=== PATIENT | female | born 1990 | race Caucasian/White ===

== ENCOUNTER 2020-05-18 09:43 | Emergency (ER) | payer MEDICAID, SELFPAY ==
--- NOTE | 2020-05-18 09:46 | ED.GENADULT ---
HPI - General Adult General Chief complaint: Urogenital-Female Stated complaint: Pos STD Time Seen by Provider: 05/18/20 09:46 Source: patient Mode of arrival: ambulatory Limitations: no limitations History of Present Illness HPI narrative: 30-year-old female patient presents to the [facility] with complaints of possible STD. Patient states she has had symptoms now for about a week and complains of white and yellow discharge, urgency frequency but denies any pain. Patient states she has had some abdominal cramping. Patient states she has had an STD before and had similar symptoms. Denies any fevers, body aches or chills. Patient states that she is but that her is incarcerated and she does have another partner but only one other partner. Patient denies or breast-feeding at this time. Related Data Allergies Allergy/AdvReac Type Severity Reaction Status Date / Time No Known Allergies Allergy Verified 05/18/20 09:58 Review of Systems Review of Systems: Narrative: CONSTITUTIONAL: Denies fever, chills, or sweats. EYES: Denies visual changes, redness, or discharge. ENT: Denies rhinorrhea, congestion, sore throat, or otalgia. CARDIOVASCULAR: Denies chest pain, palpitations, or edema. RESPIRATORY: Denies cough or dyspnea. GASTROINTESTINAL: Denies abdominal pain, nausea, vomiting, or diarrhea. GENITOURINARY: Denies dysuria or hematuria. Positive vaginal discharge x1 week. SKIN: Denies rash or itching. MUSCULOSKELETAL: Denies back pain, joint pain, or myalgia. NEUROLOGIC: Denies headache, numbness, or weakness. PSYCHIATRIC: Denies anxiety or depression. PMFSH Comments At the time of my signature I agree with nursing past medical history, surgical, social, and family history. There is no relevant family history pertinent to the presenting complaint. Exam Narrative: Exam Narrative: GENERAL: Well-appearing, well-nourished, and in no acute distress. HEAD: Normocephalic, atraumatic. EYES: PERRLA and EOMI. ENT: Nares clear, no rhinorrhea or epistaxis. Mucous membranes moist. NECK: Supple. No lymphadenopathy CHEST: Clear to auscultation. No respiratory distress. HEART: Regular rate and rhythm. No murmur heard. Normal peripheral pulses. ABDOMEN: Soft, nontender, nondistended, normal active bowel sounds. No CVA tenderness on percussion : Normal external female genitalia. OS is closed. Patient does have some milky white discharge noted on exam. No adnexal fullness or TTP. No CVA tenderness to percussion. EXTREMITIES: Normal range of motion. No edema. SKIN: Warm, dry, no rash. NEURO: No focal deficits. Alert and oriented x3. Course Vital Signs Vital signs: Vital Signs Temperature 36.6 C 05/18/20 09:56 Pulse Rate 105 H 05/18/20 09:56 Respiratory Rate 20 05/18/20 09:56 Blood Pressure 121/72 05/18/20 09:56 Pulse Oximetry 99 05/18/20 09:56 Temperature 36.6 C 05/18/20 09:56 Pulse Rate 105 H 05/18/20 09:56 Respiratory Rate 20 05/18/20 09:56 Blood Pressure 121/72 05/18/20 09:56 Pulse Oximetry 99 05/18/20 09:56 Vital signs reviewed Medical Decision Making Differential Diagnosis Differential Diagnosis: Differential diagnosis: Gonorrhea, chlamydia, Trichomonas, bacterial vaginosis, herpes, HIV, yeast infection, urinary tract infection. Uncomplicated lower UTI, uncomplicated UTI, pyelonephritis Discussed with patient that we will take the swabs that we did in the vaginal canal and send it to the lab we will go ahead and test her today for gonorrhea, chlamydia, trichomonas and bacterial vaginosis. Discussed with patient that we will go ahead and treat her today prior to leaving. Discussed with patient that if she continues to have symptoms I highly recommend that she get a full panel of STD testing done including for syphilis, HIV, and herpes which we do not test for here. Patient verbalized understanding denies any other questions or concerns at this time. Vital Signs Vital Signs
[2020-05-18 09:56] VITALS: BP 121/72; PULSE 105; RESP 20; TEMP 36.6; O2SAT 99
[2020-05-18] MEDS: LIDOCAINE HCL 1% LOCAL INJ 20 ML VIAL IM (10:25)
[2020-05-18] MEDS: cefTRIAXone 250 MG VIAL 500 MG IM (10:25)
== END 2020-05-18 10:39 | disposition home or self-care (01) ==
PROVIDERS: Emergency Provider Nurse Practitioner Family
DX: Z20.2 Contact with and (suspected) exposure to infections with a predominantly sexual mode of transmission (principal)
CPT/HCPCS: 81003; 81025; 87070; 87491; 87591; 87661; 96372; 99214; G0463; J0696

== ENCOUNTER 2020-06-02 15:38 | Emergency (ER) | payer MEDICAID, SELFPAY ==
[2020-06-02 15:40] VITALS: BP 111/74; PULSE 91; RESP 20; TEMP 36.1; O2SAT 99
[2020-06-02 16:06] LABS: Add Urine Microscopic? YES; Appearance Urine Cloudy (Clear); Bacteria Urine Trace /hpf; Bilirubin Urine Negative (Negative); Blood Urine Negative (Negative); Color Urine Yellow (Yellow); Glucose Urine UA Negative (Negative); Ketones Urine Negative (Negative); Leukocyte Esterase Ur 3+ LEU/UL (Negative); Mucus Urine Few /lpf; Nitrate Urine Negative (Negative); Protein Urine 1+ mg/dL (Negative); Specific Grav Ur 1.025 (1.001-1.035); Squamous Epithelial Cell Urine Many /hpf (Few); Urobilinogen Urine Negative mg/dL (<2.0); WBC Urine >75 /hpf
--- NOTE | 2020-06-02 18:55 | ED.FEMALEGU ---
HPI - Female Genitourinary General Chief complaint: [employer] Stated complaint: STD Treatment Time Seen by Provider: 06/02/20 18:19 Source: patient Mode of arrival: ambulatory Limitations: no limitations History of Present Illness HPI Narrative: Patient is a 30-year-old female who presents complaining of vaginal discharge and burning with urination x2 to 3 days. Patient reports that she was informed by a previous sexual partner that she was exposed to gonorrhea. She reports having gonorrhea in the past and feeling the same. She denies all other complaints. She denies significant medical history. MD elicited complaint: dysuria and vaginal discharge Related Data Allergies Allergy/AdvReac Type Severity Reaction Status Date / Time No Known Allergies Allergy Verified 06/02/20 18:23 Review of Systems Review of Systems: Narrative: CONSTITUTIONAL: Denies fever, chills, or sweats. EYES: Denies visual changes, redness, or discharge. ENT: Denies rhinorrhea, congestion, sore throat, or otalgia. CARDIOVASCULAR: Denies chest pain, palpitations, or edema. RESPIRATORY: Denies cough or dyspnea. GASTROINTESTINAL: Denies abdominal pain, nausea, vomiting, or diarrhea. GENITOURINARY: Reports dysuria and vaginal discharge. SKIN: Denies rash or itching. MUSCULOSKELETAL: Denies back pain, joint pain, or myalgia. NEUROLOGIC: Denies headache, numbness, dizziness, or weakness. PSYCHIATRIC: Denies anxiety or depression. PMFSH Surgical History Surgical History H/O: Social History Social History (Updated 06/02/20 @ 18:58 by TARSHA Sellers) Smoking status: Current every day smoker Alcohol intake: current Alcohol use details: Occasional Substance use: never Living arrangements: with family Comments At the time of signature, I have reviewed and agree with nursing past medical, surgical, social, and family history unless otherwise noted. Please see nursing chart for further information. There is no relevant family history pertinent to the presenting complaint. Exam Narrative: Exam Narrative: GENERAL: Well-appearing, well-nourished, and in no acute distress. HEAD: Normocephalic, atraumatic. EYES: EOMI. No redness or drainage. Conjunctiva are normal. ENT: Mucous membranes pink and moist. CHEST: No respiratory distress. HEART: Regular rate and rhythm. GI: Soft, nontender without rebound, or guarding. EXTREMITIES: Normal range of motion. No edema. SKIN: Warm, dry, no rash. NEURO: No focal deficits. Alert and oriented x3. Gait steady. PSYCH: Normal affect. No signs of depression or anxiety. Course Vital Signs Vital signs: Vital Signs Temperature 36.1 C L 06/02/20 15:40 Pulse Rate 91 06/02/20 15:40 Respiratory Rate 20 06/02/20 15:40 Blood Pressure 111/74 06/02/20 15:40 Pulse Oximetry 99 06/02/20 15:40 Temperature 36.1 C L 06/02/20 15:40 Pulse Rate 80 06/02/20 19:28 Respiratory Rate 16 06/02/20 19:28 Blood Pressure 108/74 06/02/20 19:28 Pulse Oximetry 100 06/02/20 19:28 Reviewed MDM - Female Genitourinary MDM Narrative Medical decision making narrative: Patient to be treated prophylactically for STDs. Discussed antibiotic treatment as well as safe sex practices. Patient is stable for discharge to home with outpatient follow-up as needed. Differential Diagnosis Differential diagnosis: Likely urinary tract infection, trichomoniasis and other (Gonorrhea, chlamydia) Lab Data Labs: Lab Results 06/02/20 Range/Units 15:51 Urine Color Yellow (Yellow) Urine Appearance Cloudy H (Clear) Urine pH 6.0 (5.0-9.0) Ur Specific [place] 1.025 (1.001-1.035) Urine Protein 1+ H (Negative) mg/dL Urine Glucose (UA) Negative (Negative) mg/dL Urine Ketones Negative (Negative) mg/dL Ur Blood (Man) Negative (Negative) Urine Nitrate Negative (Negative) Urine Bilirubin Negative (Negative) Urine Ur
[2020-06-02] MEDS: cefTRIAXone 1 GM VIAL 0.5 GM IM (19:19)
[2020-06-02 19:28] VITALS: BP 108/74; PULSE 80; RESP 16; O2SAT 100
== END 2020-06-02 19:29 | disposition home or self-care (01) ==
PROVIDERS: Emergency Medicine; Emergency Provider Nurse Practitioner
DX: R30.0 Dysuria (principal); Z20.2 Contact with and (suspected) exposure to infections with a predominantly sexual mode of transmission; F17.210 Nicotine dependence, cigarettes, uncomplicated
CPT/HCPCS: 81001; 81025; 87086; 96372; 99283; J0696